=== PATIENT | female | born 1985 | race American Indian/Alaskan Native ===

== ENCOUNTER 2017-07-07 18:43 | Emergency (ER) | payer SELFPAY ==
[2017-07-07 18:57] VITALS: BP 142/90
[2017-07-07 19:29] LABS: Basophils % (Auto) 0.7 % (0.0-1.8); Eosinophils % (Auto) 2.6 % (0.0-4.3); Hematocrit 37.5 % (30.3-42.9); Hemoglobin 12.6 gm/dl (10.1-14.3); Mean Corpuscular HGB Conc 34 % (30-34); Mean Corpuscular Hemoglobin 31 pg (28-32); Mean Corpuscular Volume 92 fl (79-97); Platelet Count 171 K/mm3 (140-440); Red Blood Count 4.08 M/mm3 (3.65-5.03); Red Cell Distribution Width 13.7 % (13.2-15.2); White Blood Count 5.3 K/mm3 (4.5-11.0)
[2017-07-07 20:03] LABS: Anion Gap 18 mmol/L; BUN/Creatinine Ratio 15.71; Blood Urea Nitrogen 11 mg/dL (7-17); Calcium 8.4 mg/dL (8.4-10.2); Carbon Dioxide 22 mmol/L (22-30); Chloride 105.1 mmol/L (98-107); Glucose 79 mg/dL (65-100); Potassium 4.8 mmol/L (3.6-5.0); Sodium 140 mmol/L (137-145)
--- NOTE | 2017-07-28 15:24 | ED Elopement Review ---
ED Pt Elopement review - Results review Lab results: Laboratory Tests 07/07/17 07/07/17 07/07/17 19:18 19:18 19:18 WBC 5.3 RBC 4.08 Hgb 12.6 Hct 37.5 MCV 92 MCH 31 MCHC 34 RDW 13.7 Plt Count 171 Lymph % (Auto) 31.6 [place] % (Auto) 10.6 H Eos % (Auto) 2.6 Baso % (Auto) 0.7 Lymph # 1.7 [place] # 0.6 Eos # 0.1 Baso # 0.0 Seg Neutrophils % 54.5 Seg Neutrophils # 2.9 Sodium 140 Potassium 4.8 Chloride 105.1 Carbon Dioxide 22 Anion Gap 18 BUN 11 Creatinine 0.7 Estimated GFR > 60 BUN/Creatinine Ratio 15.71 Glucose 79 Calcium 8.4 Troponin T < 0.010 HCG, Qual Negative 07/07/17 21:41 WBC RBC Hgb Hct MCV MCH MCHC RDW Plt Count Lymph % (Auto) [place] % (Auto) Eos % (Auto) Baso % (Auto) Lymph # [place] # Eos # Baso # Seg Neutrophils % Seg Neutrophils # Sodium Potassium Chloride Carbon Dioxide Anion Gap BUN Creatinine Estimated GFR BUN/Creatinine Ratio Glucose Calcium Troponin T < 0.010 HCG, Qual - Call Back decision Pt Call Back Decision: Pt to F/U with PMD (patient should follow up with primary physician)
== END 2017-07-07 22:05 | disposition left against medical advice (07) ==
LOC: ED 18:43
DX: R07.9 Chest pain, unspecified (principal); M79.602 Pain in left arm; Z53.21 Procedure and treatment not carried out due to patient leaving prior to being seen by health care provider
CPT/HCPCS: 36415; 80048; 84484; 84703; 85025; 93005; 93010